=== PATIENT | female | born 1960 | race Caucasian/White ===

== ENCOUNTER 2017-07-12 07:05 | Day surgery (SDC) | payer BC ==
[2017-07-12] MEDS ORDERED: PROPOFOL 500 MG/50 ML EMU IV ONE (07:39)
[2017-07-12] MEDS ORDERED: LIDOCAINE HCL 1% MPF SOL ONE (07:39)
[2017-07-12] MEDS ORDERED: GLYCOPYRROLATE 0.2 MG/ML SOL ONE (08:47)
[2017-07-12 08:57] VITALS: TEMP 97.4; O2SAT 99
[2017-07-12 09:33] VITALS: BP 134/58; PULSE 63; RESP 18
== END 2017-07-12 10:00 | disposition home or self-care (01) ==
LOC: SURG 07:05
PROVIDERS: ATTEND Surgery
DX: Z12.11 Encounter for screening for malignant neoplasm of colon (principal)
CPT/HCPCS: J7643; J2001; J2704